=== PATIENT | male | born 1970 | race African-American/Black ===

== ENCOUNTER 2016-05-28 18:22 | Emergency (ER) | payer MEDICAID ==
[~2016-05-28] VITALS: Ht 182.9 cm; Wt 110.0 kg
[~2016-05-28 18:22] MED LIST: METFORMIN; TAMS-11
[2016-05-28] MEDS ORDERED: KETOROLAC 30MG/ML VIAL IV STA (20:15)
[2016-05-28] MEDS ORDERED: MORPHINE SULFATE 4 MG/ML CPJ (NOT FOR IM USE) IV STA (20:15)
[2016-05-28] MEDS ORDERED: SODIUM CHLORIDE 0.9% 1,000 ML IV ONE (20:15)
[2016-05-28] MEDS ORDERED: ONDANSETRON HCL 4MG/2ML VIAL IV STA (20:15)
[2016-05-28 20:46] LABS: BASOPHILS % 0.6 % (0.0-2.0); EOSINOPHILS % 0.6 % (0.0-5.0); HEMATOCRIT. 41.7 % (42.0-52.0); HEMOGLOBIN. 13.8 g/dL (14.0-18.0); LYMPHOCYTES % 12.3 % (20.0-50.0); MEAN CORPUSCULAR HEMOGLOBIN 28.6 pg (28.0-32.0); MEAN CORPUSCULAR VOLUME 86.5 fL (80.0-94.0); MEAN PLATELET VOLUME 8.5 fl (7.4-10.4); MONOCYTES % 7.3 % (2.0-8.0); NEUTROPHILS % 79.2 % (40.0-76.0); PLATELET 229 x1000/uL (130-400); RED BLOOD CELL COUNT 4.81 mill/uL (4.7-6.1); RED CELL DISTRIBUTION WIDTH 13.1 % (11.6-14.6); WHITE BLOOD COUNT 12.4 x1000/uL (4.5-11.0)
[2016-05-28 20:48] LABS: INR 1.1; PROTHROMBIN TIME 11.8 sec
[2016-05-28 21:00] LABS: ALANINE AMINOTRANSFERASE 35 IU/L (13-61); ANION GAP 16; CALCIUM 8.8 mg/dL (8.5-10.1); CARBON DIOXIDE 23 mEq/L (21-32); CHLORIDE 105 mEq/L (98-107); INDEX HEMOLYSI 1 (1-3); INDEX ICTERIC 1 (1-4); INDEX LIPEMIC 1 (1-3); LIPASE 269 IU/L (73-393); TROPONIN I < 0.02 ng/mL (0.00-0.04); UREA NITROGEN BLOOD 12 mg/dL (7-21); eGFR > 60 mL/min (>60)
[2016-05-28] MEDS ORDERED: LEVOFLOXACIN 500MG TABLET PO ONE (22:15)
[2016-05-28] MEDS ORDERED: MORPHINE SULFATE 4 MG/ML CPJ (NOT FOR IM USE) IV ONE (22:45)
[2016-05-28] MEDS ORDERED: ONDANSETRON HCL 4MG/2ML VIAL IV ONE (22:45)
[2016-05-28 22:49] VITALS: BP 149/79
== END 2016-05-29 00:16 | disposition home or self-care (01) ==
LOC: ER 18:22
DX: N13.2 Hydronephrosis with renal and ureteral calculous obstruction (principal); E11.9 Type 2 diabetes mellitus without complications
CPT/HCPCS: 36415; 74176; 80053; 83690; 84484; 85025; 85610; 96361; 96374; 96375; 96376; 99285; J1885; J2270; J2405; J7030

== ENCOUNTER 2016-07-18 22:06 | Emergency (ER) | payer MEDICAID ==
[~2016-07-18] VITALS: Ht 182.9 cm; Wt 110.0 kg
[2016-07-19] MEDS ORDERED: KETOROLAC 60MG/2ML VIAL IM ONE (00:30)
[2016-07-19 00:46] LABS: CLARITY URINE CLEAR (CLEAR); COLOR URINE YELLOW (YELLOW); GLUCOSE URINE NEGATIVE (NEGATIVE); KETONES URINE NEGATIVE (NEGATIVE); LEUKOCYTE ESTERASE URINE NEGATIVE (NEGATIVE); NITRITE URINE NEGATIVE (NEGATIVE); OCCULT BLOOD URINE 2+ (NEGATIVE); PH URINE 5.5 (4.5-8.0); PROTEIN URINE NEGATIVE (NEGATIVE); SPECIFIC GRAVITY URINE 1.025 (1.005-1.030)
[2016-07-19 02:05] VITALS: BP 135/80
== END 2016-07-19 02:46 | disposition home or self-care (01) ==
LOC: ER 22:07
DX: N20.0 Calculus of kidney (principal); R31.29 Other microscopic hematuria; R03.0 Elevated blood-pressure reading, without diagnosis of hypertension; E11.9 Type 2 diabetes mellitus without complications; Z79.84 Long term (current) use of oral hypoglycemic drugs; Z98.890 Other specified postprocedural states; Z87.442 Personal history of urinary calculi; Z79.899 Other long term (current) drug therapy
CPT/HCPCS: 81001; 87086; 96372; 99284; J1885; Z7610

== ENCOUNTER 2017-09-05 13:24 | Emergency (ER) | payer MEDICAID ==
[~2017-09-05] VITALS: Ht 182.9 cm; Wt 107.0 kg
[2017-09-05 17:51] LABS: CLARITY URINE CLEAR (CLEAR); COLOR URINE YELLOW (YELLOW); KETONES URINE NEGATIVE (NEGATIVE); LEUKOCYTE ESTERASE URINE NEGATIVE (NEGATIVE); NITRITE URINE NEGATIVE (NEGATIVE); OCCULT BLOOD URINE 2+ (NEGATIVE); PROTEIN URINE TRACE (NEGATIVE); SPECIFIC GRAVITY URINE 1.019 (1.005-1.030); UROBILINOGEN URINE 0.2 E.U./dL (0.2-1.0)
[2017-09-05] MEDS ORDERED: ONDANSETRON HCL 4MG/2ML VIAL IV STA (17:53)
[2017-09-05] MEDS ORDERED: SODIUM CHLORIDE 0.9% 1,000 ML IV ONE (17:53)
[2017-09-05] MEDS ORDERED: KETOROLAC 30MG/ML VIAL IV STA (17:53)
[2017-09-05 18:23] LABS: BASOPHILS % 0.9 % (0.0-2.0); EOSINOPHILS % 0.2 % (0.0-5.0); HEMATOCRIT. 45.1 % (42.0-52.0); HEMOGLOBIN. 15.2 g/dL (14.0-18.0); LYMPHOCYTES % 15.7 % (20.0-50.0); MEAN CORPUSCULAR HEMOGLOBIN 29.4 pg (28.0-32.0); MEAN PLATELET VOLUME 8.4 fl (7.4-10.4); MONOCYTES % 6.1 % (2.0-8.0); NEUTROPHILS % 77.1 % (40.0-76.0); PLATELET 234 x1000/uL (130-400); RED BLOOD CELL COUNT 5.18 mill/uL (4.7-6.1)
[2017-09-05 18:29] LABS: CHLORIDE 102 mEq/L (98-107)
[2017-09-05 18:30] LABS: INR 1.1; PROTHROMBIN TIME 11.4 sec (9.4-11.6)
[2017-09-05] MEDS ORDERED: MORPHINE SULFATE 4 MG/ML CPJ (NOT FOR IM USE) IV STA (19:53)
[2017-09-05 20:49] VITALS: BP 123/73
== END 2017-09-05 22:19 | disposition home or self-care (01) ==
LOC: ER 13:38
DX: N20.0 Calculus of kidney (principal); E11.9 Type 2 diabetes mellitus without complications
CPT/HCPCS: 36415; 74176; 80053; 81003; 83690; 85025; 85610; 96361; 96374; 96375; 99285; J1885; J2270; J2405; J7030; Z7610

== ENCOUNTER 2018-02-12 21:15 | Emergency (ER) | payer MEDICAID ==
[~2018-02-12] VITALS: Ht 182.9 cm; Wt 110.0 kg
[2018-02-13 04:38] VITALS: BP 154/88
== END 2018-02-13 04:40 | disposition home or self-care (01) ==
LOC: ER 21:15
DX: L21.9 Seborrheic dermatitis, unspecified (principal); E11.9 Type 2 diabetes mellitus without complications
CPT/HCPCS: 99283

== ENCOUNTER 2018-08-29 14:07 | Emergency (ER) | payer MEDICAID ==
[~2018-08-29] VITALS: Ht 182.9 cm; Wt 110.0 kg
[2018-08-29] MEDS ORDERED: ONDANSETRON HCL 4MG/2ML INJ IV STA (15:03)
[2018-08-29] MEDS ORDERED: SODIUM CHLORIDE 0.9% 1,000 ML IV ONE (15:03)
[2018-08-29 15:38] LABS: BASOPHILS % 1.1 % (0.0-2.0); EOSINOPHILS % 1.5 % (0.0-5.0); HEMATOCRIT. 41.2 % (42.0-52.0); LYMPHOCYTES % 31.5 % (20.0-50.0); MEAN CORPUSCULAR HEMOGLOBIN 29.8 pg (28.0-32.0); MEAN CORPUSCULAR VOLUME 87.7 fL (80.0-94.0); MEAN PLATELET VOLUME 8.7 fl (7.4-10.4); MONOCYTES % 8.3 % (2.0-8.0); NEUTROPHILS % 57.6 % (40.0-76.0); PLATELET 198 x1000/uL (130-400); RED CELL DISTRIBUTION WIDTH 12.8 % (11.6-14.6)
[2018-08-29 15:42] LABS: CHLORIDE 105 mEq/L (98-107)
[2018-08-29 15:43] LABS: INR 1.1; PROTHROMBIN TIME 11.1 sec (9.6-11.0)
[2018-08-29 18:30] VITALS: BP 136/80
== END 2018-08-29 19:03 | disposition home or self-care (01) ==
LOC: ER 14:07
DX: R11.2 Nausea with vomiting, unspecified (principal); E11.9 Type 2 diabetes mellitus without complications; I10 Essential (primary) hypertension; Z88.1 Allergy status to other antibiotic agents; Z79.899 Other long term (current) drug therapy
CPT/HCPCS: 36415; 71045; 74176; 80053; 83690; 84484; 85025; 85610; 93005; 96361; 96374; 99284; J2405; J7030

== ENCOUNTER 2019-02-18 10:37 | Emergency (ER) | payer MEDICAID ==
[~2019-02-18] VITALS: Ht 172.7 cm; Wt 112.0 kg
[2019-02-18 10:59] VITALS: BP 164/98
[2019-02-18] MEDS ORDERED: ACETAMINOPHEN 500MG TABLET PO ONE (12:30)
== END 2019-02-18 12:43 | disposition home or self-care (01) ==
LOC: ER 10:37
DX: L73.9 Follicular disorder, unspecified (principal); E11.9 Type 2 diabetes mellitus without complications; Z88.1 Allergy status to other antibiotic agents
CPT/HCPCS: 99283

== ENCOUNTER 2019-02-18 22:32 | Emergency (ER) | payer MEDICAID ==
[~2019-02-18] VITALS: Ht 180.3 cm; Wt 82.0 kg
[2019-02-19] MEDS ORDERED: DEXAMETHASONE 10 MG/ML VIAL IM ONE (06:30)
[2019-02-19] MEDS ORDERED: ACETAMINOPHEN 325MG TABLET PO ONE (06:30)
[2019-02-19 07:45] VITALS: BP 138/80
== END 2019-02-19 07:45 | disposition home or self-care (01) ==
LOC: ER 22:32
DX: T65.6X1A Toxic effect of paints and dyes, not elsewhere classified, accidental (unintentional), initial encounter (principal); E11.9 Type 2 diabetes mellitus without complications; R22.0 Localized swelling, mass and lump, head; Y92.9 Unspecified place or not applicable; Z88.3 Allergy status to other anti-infective agents
CPT/HCPCS: 96372; 99283; J1100

== ENCOUNTER 2019-05-05 06:45 | Emergency (ER) | payer MEDICAID ==
[~2019-05-05] VITALS: Ht 182.9 cm; Wt 109.0 kg
[2019-05-05 08:47] VITALS: BP 144/94
== END 2019-05-05 08:48 | disposition home or self-care (01) ==
LOC: ER 06:45
DX: T16.2XXA Foreign body in left ear, initial encounter (principal); T16.1XXA Foreign body in right ear, initial encounter; E11.9 Type 2 diabetes mellitus without complications; Z88.1 Allergy status to other antibiotic agents; Z79.84 Long term (current) use of oral hypoglycemic drugs; X58.XXXA Exposure to other specified factors, initial encounter; Y93.89 Activity, other specified; Y92.018 Other place in single-family (private) house as the place of occurrence of the external cause
CPT/HCPCS: 99282

== ENCOUNTER 2019-08-02 17:06 | Emergency (ER) | payer MEDICAID ==
[~2019-08-02] VITALS: Ht 182.9 cm; Wt 105.0 kg
[2019-08-02] MEDS ORDERED: DIPHENHYDRAMINE 50MG CAPSULE PO ONE (18:00)
[2019-08-02] MEDS ORDERED: IBUPROFEN 600MG TABLET PO ONE (18:00)
[2019-08-02] MEDS ORDERED: BACITRACIN ZINC OINT UDPKT TOP ONE (18:00)
[2019-08-02 18:50] VITALS: BP 144/87
[2019-08-02] MEDS ORDERED: HYDROCORTISONE 1% OINT 28.35GM TOP SCH (21:00)
== END 2019-08-02 19:04 | disposition home or self-care (01) ==
LOC: ER 17:06
DX: T65.6X1A Toxic effect of paints and dyes, not elsewhere classified, accidental (unintentional), initial encounter (principal); E11.9 Type 2 diabetes mellitus without complications; Z88.1 Allergy status to other antibiotic agents; Z79.84 Long term (current) use of oral hypoglycemic drugs; Z98.890 Other specified postprocedural states; T20.45XA Corrosion of unspecified degree of scalp [any part], initial encounter; Y93.89 Activity, other specified; Y92.018 Other place in single-family (private) house as the place of occurrence of the external cause
CPT/HCPCS: 99284; Q0163

== ENCOUNTER 2019-08-17 21:12 | Emergency (ER) | payer MEDICAID ==
[~2019-08-17] VITALS: Ht 165.1 cm; Wt 90.0 kg
[2019-08-17 21:38] VITALS: BP 126/85
== END 2019-08-18 00:03 | disposition home or self-care (01) ==
LOC: ER 21:12
DX: L73.1 Pseudofolliculitis barbae (principal); L02.31 Cutaneous abscess of buttock; E11.9 Type 2 diabetes mellitus without complications; Z79.84 Long term (current) use of oral hypoglycemic drugs; Z88.1 Allergy status to other antibiotic agents
CPT/HCPCS: 99282

== ENCOUNTER 2020-09-25 05:28 | Emergency (ER) | payer MEDICAID ==
[~2020-09-25] VITALS: Ht 182.9 cm; Wt 107.0 kg
[2020-09-25 05:52] VITALS: BP 141/87
[2020-09-25 09:21] LABS: BASOPHILS % 0.7 % (0.0-2.0); EOSINOPHILS % 1.1 % (0.0-5.0); MEAN CORPUSCULAR HEMOGLOBIN 29.1 pg (28.0-32.0); MEAN CORPUSCULAR VOLUME 87.3 fL (80.0-94.0); MONOCYTES % 6.4 % (2.0-8.0); NEUTROPHILS % 63.8 % (40.0-76.0); RED BLOOD CELL COUNT 5.85 mill/uL (4.7-6.1); RED CELL DISTRIBUTION WIDTH 12.6 % (11.6-14.6)
[2020-09-25 09:27] LABS: CHLORIDE 97 mEq/L (98-107)
[2020-09-25 10:18] LABS: PLATELET 237 x1000/uL (130-400)
== END 2020-09-25 11:05 | disposition home or self-care (01) ==
LOC: ER 05:28
DX: R42 Dizziness and giddiness (principal); E11.9 Type 2 diabetes mellitus without complications; I10 Essential (primary) hypertension; Z88.3 Allergy status to other anti-infective agents; Z87.442 Personal history of urinary calculi
CPT/HCPCS: 36415; 71045; 80053; 84484; 85025; 93005; 99285; Z7610; A4565; A4315

== ENCOUNTER 2022-06-16 01:55 | Emergency (ER) | payer MEDICAID ==
[~2022-06-16] VITALS: Ht 182.9 cm; Wt 105.0 kg
[2022-06-16 02:33] VITALS: BP 149/90
[2022-06-16] MEDS ORDERED: AM250 MT (03:37)
== END 2022-06-16 03:49 | disposition home or self-care (01) ==
LOC: ER 01:55
DX: J01.90 Acute sinusitis, unspecified (principal); E11.9 Type 2 diabetes mellitus without complications; I10 Essential (primary) hypertension
CPT/HCPCS: 99281

== ENCOUNTER 2022-06-30 23:40 | Emergency (ER) | payer MEDICAID ==
[~2022-06-30] VITALS: Ht 182.9 cm; Wt 106.0 kg
[~2022-06-30 23:40] MED LIST changes: +AM250 MT
[2022-07-01] MEDS ORDERED: ACETAMINOPHEN 325MG TABLET PO STA (05:50)
[2022-07-01] MEDS ORDERED: IBUPROFEN 600MG TABLET PO STA (05:50)
[2022-07-01 07:22] LABS: CLARITY URINE CLEAR (CLEAR); COLOR URINE YELLOW (YELLOW); KETONES URINE TRACE (NEGATIVE); LEUKOCYTE ESTERASE URINE NEGATIVE (NEGATIVE); NITRITE URINE NEGATIVE (NEGATIVE); OCCULT BLOOD URINE NEGATIVE (NEGATIVE); PH URINE 5.5 (4.5-8.0); PROTEIN URINE NEGATIVE (NEGATIVE); SPECIFIC GRAVITY URINE 1.029 (1.005-1.030); UROBILINOGEN URINE 0.2 E.U./dL (0.2-1.0)
[2022-07-01 08:09] LABS: BASOPHILS % 0.8 % (0.0-2.0); EOSINOPHILS % 1.4 % (0.0-5.0); HEMATOCRIT. 44.6 % (42.0-52.0); HEMOGLOBIN. 15.3 g/dL (14.0-18.0); LYMPHOCYTES % 37.9 % (20.0-50.0); MEAN CORPUSCULAR HEMOGLOBIN 29.4 pg (28.0-32.0); MEAN CORPUSCULAR VOLUME 85.7 fL (80.0-94.0); MEAN PLATELET VOLUME 8.6 fl (7.4-10.4); MONOCYTES % 9.7 % (2.0-8.0); NEUTROPHILS % 50.2 % (40.0-76.0); PLATELET 218 x1000/uL (130-400); RED BLOOD CELL COUNT 5.21 mill/uL (4.7-6.1); RED CELL DISTRIBUTION WIDTH 12.8 % (11.6-14.6)
[2022-07-01 08:16] LABS: CHLORIDE 100 mEq/L (98-107)
[2022-07-01] MEDS ORDERED: KETOROLAC 60MG/2ML VIAL IM ONE (08:45)
[2022-07-01] MEDS ORDERED: IBUP-2028 MT (08:48)
[2022-07-01 08:58] VITALS: BP 145/89
== END 2022-07-01 09:00 | disposition home or self-care (01) ==
LOC: ER 23:40
DX: M25.551 Pain in right hip (principal); M25.552 Pain in left hip; E11.9 Type 2 diabetes mellitus without complications; I10 Essential (primary) hypertension
CPT/HCPCS: 36415; 74176; 80053; 81003; 85025; 96372; 99285; J1885; Z7610

== ENCOUNTER 2022-07-17 23:33 | Emergency (ER) | payer MEDICAID ==
[~2022-07-17] VITALS: Ht 182.9 cm; Wt 105.0 kg
[~2022-07-17 23:33] MED LIST changes: +IBUP-2028 MT
[2022-07-17 23:47] VITALS: BP 116/74; O2SAT 98
[2022-07-18] MEDS ORDERED: LIDOCAINE HCL/PF 1% 10 MG/ML 5ML VIAL INFIL ONE (04:30)
[2022-07-18] MEDS ORDERED: BACITRACIN ZINC OINT UDPKT TOP ONE (04:30)
[2022-07-18] MEDS ORDERED: SULF1TAB48 MT (05:37)
[2022-07-18 05:43] VITALS: PULSE 87; RESP 18; TEMP 99
== END 2022-07-18 05:44 | disposition home or self-care (01) ==
LOC: ER 23:33
DX: L03.012 Cellulitis of left finger (principal); E11.9 Type 2 diabetes mellitus without complications; I10 Essential (primary) hypertension; Z88.8 Allergy status to other drugs, medicaments and biological substances; Z79.84 Long term (current) use of oral hypoglycemic drugs
CPT/HCPCS: 10060; 73120; 99283; J3490

== ENCOUNTER 2022-07-20 08:54 | Emergency (ER) | payer MEDICAID ==
[~2022-07-20] VITALS: Ht 182.9 cm; Wt 105.0 kg
[~2022-07-20 08:54] MED LIST changes: +SULF1TAB48 MT
[2022-07-20 09:36] VITALS: BP 144/88
== END 2022-07-20 09:04 | disposition home or self-care (01) ==
LOC: ER 08:54
DX: Z51.81 Encounter for therapeutic drug level monitoring (principal)
CPT/HCPCS: 99281